=== PATIENT | male | born 1955 | race Caucasian/White ===

== ENCOUNTER 2023-10-29 20:10 | Emergency (ER) | payer OTHER, MEDICAID ==
[~2023-10-29] VITALS: Ht 167.6 cm; Wt 79.4 kg
[2023-10-29 20:36] VITALS: BP_SYST 146; PULSE 89; RESP 20; TEMP 98.7; O2SAT 96
[2023-10-29] MEDS ORDERED: KETOROLAC TROMETHAMINE 60 MG/2 ML VIAL IM ONE (21:00)
[2023-10-29] MEDS: MORPHINE 4 MG INJ. 4 MG/ML VIAL IM ONE (21:16)
[2023-10-29 21:34] VITALS: BP_SYST 147; PULSE 93; RESP 16; TEMP 98.4; O2SAT 95
== END 2023-10-29 21:30 | disposition home or self-care (01) ==
LOC: SED 20:10
DX: S20.211A Contusion of right front wall of thorax, initial encounter (principal); Z88.0 Allergy status to penicillin; Z88.5 Allergy status to narcotic agent; Z88.6 Allergy status to analgesic agent; Z88.8 Allergy status to other drugs, medicaments and biological substances; Z85.6 Personal history of leukemia; Z79.899 Other long term (current) drug therapy; X58.XXXA Exposure to other specified factors, initial encounter; Y93.89 Activity, other specified; Y92.89 Other specified places as the place of occurrence of the external cause; Y99.8 Other external cause status
CPT/HCPCS: 99283; 96372; J2270